=== PATIENT | male | born 1990 | race Caucasian/White ===

== ENCOUNTER 2017-07-16 23:34 | Emergency (ER) | payer OTHER ==
[2017-07-16 23:42] VITALS: RESP 16; O2SAT 96
--- NOTE | 2017-07-17 | CPEKG ---
Heart Rate: 71 RR Interval: 845 P-R Interval: 180 QRSD Interval: 100 QT Interval: 376 QTC Interval: 409 P Etta: 48 QRS Etta: 52 T Wave Etta: 39 EKG Severity - NORMAL ECG - EKG Impression: SINUS RHYTHM Electronically Signed By: Alvin Alcazar 17-Jul-2017 06:45:04
--- NOTE | 2017-07-17 00:33 | EDPHY ---
H & P Stated Complaint: syncopal episode 20 min ago Time Seen by Provider: 07/17/17 00:14 HPI/ROS: Chief Complaint: Syncope HPI: 26-year-old healthy male 828 of bowls earlier tonight was watching TV. He felt a little bit lightheaded so went to the kitchen to get a glass of water. Patient developed some tunnel vision is sat down and had a witnessed syncopal episode lasting about 10 seconds. He has had episodes of syncope once in the past. Occasionally gets tunnel vision. Did not have any chest pain or palpitations. No fevers or chills. No cough. No family history of sudden cardiac or coronary artery disease. He has not been having any dark tarry stools. Does state that he has normally quite dark urine and does not believe he drinks enough water. No recent periods of long immobility. No calf pain. No pleuritic chest pain. ROS: 10 point Review of Systems is negative except as noted in the HPI. PMH: Denies Social History: No smoking, no alcohol, occasional marijuana Family History: non-contributory Physical Exam: Gen: Awake, Alert, No Distress HEENT: Nose: no rhinorrhea Eyes: PERRLA, EOMI Mouth: Moist mucosa Neck: Supple, no JVD Chest: nontender, lungs clear to auscultation Heart: S1, S2 normal, no murmur Abd: Soft, non-tender, no guarding Back: no CVA tenderness, no midline tenderness Ext: no edema, non-tender Skin: no rash Neuro: CN II-XII intact, Sensation grossly intact, Strength 5/5 in bilateral upper and lower extremities - Personal History Current Tetanus/Diphtheria Vaccine: Yes - Medical/Surgical History Hx Asthma: No Hx Chronic Respiratory Disease: No Hx Diabetes: No Hx Cardiac Disease: No Hx Renal Disease: No Hx Cirrhosis: No Hx Alcoholism: No Hx HIV/AIDS: No Hx Splenectomy or Spleen Trauma: No Other PMH: 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 sinus rhythm with a rate of 71, normal axis, normal intervals, no acute ST or T-wave changes. Impression: Normal ECG. ED Course/Re-evaluation: 26-year-old male with a history very consistent with vasovagal syncope. He was using marijuana. He appears mildly dehydrated. He did not have any symptomatology to suggest acute arrhythmia. Is not have any risk factors. No family history of sudden cardiac . He has a normal ECG here. I have discussed at length that I do not believe blood testing will be particularly useful at this time. I have advised him to cut back on his marijuana usage. He needs to increase his fluid intake to drink at least 8 8 oz glasses of water a day. He will follow up with primary care for further evaluation. Return for any other syncopal events. Departure - Departure Disposition: Home, Routine, Self-Care Clinical Impression: Syncope Condition: Good Instructions: Syncope (ED) Additional Instructions: Make sure to drink at least 8, 8 oz glasses of water a day. Please try to avoid excessive marijuana use. Follow up with primary care physician in 2-3 days for further evaluation. Return to the emergency department for chest pain, palpitations, further fainting, or any other concerns. Referrals: Carmen Sidhu MD [[facility] Primary Care Provider] - As per Instructions
[2017-07-17 00:53] VITALS: BP 122/84; PULSE 76; TEMP 97.9
== END 2017-07-17 00:52 | disposition home or self-care (01) ==
DX: R55 Syncope and collapse (principal)